=== PATIENT | male | born 2000 | race Caucasian/White ===

== ENCOUNTER 2021-06-18 02:08 | Emergency (ER) | payer OTHER ==
[~2021-06-18] VITALS: Ht 187.9 cm; Wt 95.3 kg
[~2021-06-18 02:08] MED LIST: MOTRIN400 MG PO
== END 2021-06-18 04:52 | disposition short-term general hospital (02) ==
LOC: ED 02:08
DX: S92.145A Nondisplaced dome fracture of left talus, initial encounter for closed fracture (principal); S82.55XA Nondisplaced fracture of medial malleolus of left tibia, initial encounter for closed fracture; V89.2XXA Person injured in unspecified motor-vehicle accident, traffic, initial encounter; Y93.89 Activity, other specified; Y92.89 Other specified places as the place of occurrence of the external cause; Y99.8 Other external cause status

== ENCOUNTER 2022-06-23 03:53 | Emergency (ER) | payer BC ==
[~2022-06-23] VITALS: Ht 187.9 cm; Wt 90.7 kg
[2022-06-23 06:54] LABS: BASO % 0.2 % (0.0-1.0); EOS % 0.2 % (1.0-4.0); HEMATOCRIT 45.7 % (42.0-52.0); LYMPH % 12.4 % (27.0-41.0); MEAN CELL VOLUME 91.2 fl (80.0-94.0); MEAN CORPUSCULAR HGB 30.9 pg (27.0-31.0); MEAN CORPUSCULAR HGB CONC 33.9 g/dl (33.0-37.0); MEAN PLATELET VOLUME 9.4 fl (9.6-12.3); MONO # 0.6 10*3/uL (0.1-1.0); MONO % 7.6 % (3.0-9.0); NEUT # 6.5 10*3/uL (2.3-7.9); NEUT % 79.4 % (47.0-73.0); PLATELET COUNT AUTOMATED 266 10*3/uL (130-400); RED BLOOD COUNT 5.01 10*6/uL (4.50-5.90); RED CELL DISTRI WIDTH 12.2 % (0-14.5); WHITE BLOOD COUNT 8.2 10*3/uL (4.8-10.8)
[2022-06-23 07:08] LABS: ACT PARTIAL THROMBO TIME 26.3 SECONDS (20.0-32.1)
[2022-06-23 07:18] LABS: ALKALINE PHOSPHATASE 71 U/L (46-116); BUN 8 mg/dl (9-23); CHLORIDE 107 mmol/L (98-107); CPK 370 U/L (34-171); ETHYL ALCOHOL 167.6 mg/dl (<3); MYOGLOBIN 142.9 ng/ml (16-116); SGPT/ALT 25 U/L (10-49); TOTAL PROTEIN 7.3 gm/dL (6.0-8.0)
[2022-06-23] MEDS ORDERED: ONDANSETRON4 MG SL (07:58)
== END 2022-06-23 08:05 | disposition home or self-care (01) ==
LOC: ED 03:53
PROVIDERS: Family Medicine
DX: S01.01XA Laceration without foreign body of scalp, initial encounter (principal); F10.920 Alcohol use, unspecified with intoxication, uncomplicated; W17.81XA Fall down embankment (hill), initial encounter; Y93.89 Activity, other specified; Y92.89 Other specified places as the place of occurrence of the external cause; Y99.8 Other external cause status; Y90.9 Presence of alcohol in blood, level not specified